=== PATIENT | female | born 1970 | race Caucasian/White ===

== ENCOUNTER 2023-09-07 16:18 | Emergency (ER) | payer OTHER, SELFPAY ==
[2023-09-07 16:29] VITALS: BP 152/98
[2023-09-07 16:46] LABS: % Basophils 1.2 % (0-2); % Eosinophils 1.3 % (0-6); % Immature Granulocytes 0.3 % (0-0.5); % Lymphocytes 23.3 % (20.5-51.1); % Monocytes 4.7 % (1.7-9.3); % Neutrophils 69.2 % (42.2-75.2); Absolute Basophils 0.1 10^3/uL (0-0.2); Absolute Eosinophils 0.1 10^3/uL (0-0.7); Absolute Lymphocytes 1.7 10^3/uL (1.2-3.4); Absolute Monocytes 0.4 10^3/uL (0.1-0.6); Absolute Neutrophils 5.2 10^3/uL (1.4-6.5); Hematocrit 41.5 % (37.0-47.0); Hemoglobin 14.5 g/dL (12.0-16.0); Mean Corp Hgb Conc. 34.9 g/dL (33.0-37.0); Mean Corpuscular Hgb 28.9 pg (27.0-31.0); Mean Corpuscular Volume 82.8 fL (81.0-99.0); Mean Platelet Volume 10.3 fL (7.4-10.4); Nucleated Red Blood Cells % 0 %; Platelet Count 306 10^3/uL (130-400); Red Blood Cell Count 5.01 10^6/uL (4.20-5.40); Red Cell Dist. Width 12.9 % (11.5-14.5); White Blood Cell Count 7.4 10^3/uL (4.8-10.8)
[2023-09-07 17:00] LABS: ALT (SGPT) 21 U/L (0-35); AST (SGOT) 30 U/L (14-36); Albumin 4.4 g/dl (3.5-5.0); Alkaline Phosphatase 99 U/L (38-126); Blood Urea Nitrogen 14 mg/dl (7-17); Calcium 9.9 mg/dl (8.4-10.2); Carbon Dioxide 28 mmol/L (22-30); Chloride 102 mmol/L (98-107); Glucose 106 mg/dl (70-99); Lipase 126 U/L (23-300); Potassium 4.1 mmol/L (3.5-5.1); Sodium 134 mmol/L (135-145); Total Bilirubin 0.5 mg/dl (0.2-1.3); Total Protein 7.3 g/dl (6.3-8.2); eGFR > 60.00
[2023-09-07 22:19] VITALS: BP 125/97; BMI 31.9
[2023-09-07] MEDS: OMNIPAQUE 50 ML PO (22:50)
[2023-09-07] MEDS: ZOFRAN 4 MG IV (22:50)
[2023-09-07 22:56] LABS: HCG, Serum Qualitative Screen Negative
[2023-09-07] MEDS: DILAUDID 0.5 MG IV (22:57)
[2023-09-07 22:58] LABS: Magnesium 1.9 mg/dl (1.6-2.3)
[2023-09-07] MEDS: NSS 1000 IV (22:58)
[2023-09-07 23:33] LABS: TSH Reflex To Free T4 2.77 uIU/ml (0.47-4.68)
[2023-09-08 00:37] VITALS: BP 119/89
--- NOTE | 2023-09-08 00:38 | EDRN ---
Finished oral contrast, ambulatory to the restroom, states is still slightly nauseated and with pain, will inform Dr. Howe
--- NOTE | 2023-09-08 00:58 | ED.GENMED ---
History of Present Illness
General
Chief Complaint: Abdominal Symptoms
Source: patient
Exam Limitations: none
Time Seen by Provider: 09/07/23 22:15
Nursing documentation reviewed up to this point in time: agreed with
Travel History
Have you had any contact with someone who has COVID-19?: No
Do you have any symptoms of coronavirus? Fever > 100 degrees, chills, cough, shortness of breath, sore throat, loss of taste or smell, muscle aches, or headache?: No
History of Present Illness
History of Present Illness:
Patient with history of Crohn's disease, presents to ED secondary to recurrent abdominal pain associated with nausea and decreased appetite over the past 4 days. In addition, patient states that tremor that she has been experiencing since last
January, has worsened. Patient was started on new antidepressant 1 month ago, which she is wondering may be contributing to her symptoms. Denies fever or chills. Patient reports diarrhea, with streaks of blood noted when she wipes.
Past History
Past History
ED Past Medical History: Asthma, Fibromyalgia, Hypothyroidism, Psychiatric (Panic disorder, Anxiety, Depression) and Other (Ulcerative colitis, Migraines, common variable immunodeficiency, PNA, Crohn's, IBS, endometriosis, Anemia, Lymphocytic
colitis); Negative HTN, Hypercholesterolemia or NIDDM
ED Past Surgical History: Cholecystectomy, Gynecological (Hysterectomy) and Other (cataracts)
Social History
Tobacco: Non-smoker
Alcohol: None
Personal:
Living: alone
Employment: Not employed
Family History
Family History: Other
Review of Systems
Review of Systems
Allergies reviewed?: Yes
All Other Systems: ROS reviewed and negative except as documented in HPI and ROS
Constitutional: Reports no symptoms
EENT: Reports no symptoms
Respiratory: Reports no symptoms
Cardiac: Reports no symptoms
ABD/GI: Reports abdominal pain, nausea and diarrhea
: Reports no symptoms
Musculoskeletal: Reports no symptoms
Skin: Reports no symptoms
Neurological: Reports no symptoms
Phy Exam
Physical Exam
Physical Exam:
Physical Exam
General: mild painful distress, not acutely ill. afebrile
Head: nc/at. eomi
Neck: supple. no meningeal signs.
Heart: s1/s2 regular rate and rhythm, no murmur. equal radial pulses.
Lungs: no acute respiratory distress. clear bilaterally
Abdomen: normal bowel sounds. diffuse abdominal tenderness.
Neuro: alert and oriented. no focal neurological deficits
Skin: no rash
Psychiatric: well kept. interactive and cooperative
Extremities: no edema. no calf tenderness.
Course
Orders/Labs/Results
Orders:
Orders
09/07/23 16:38
Complete Blood Count/With Diff Urgent
Comprehensive Metabolic Panel Urgent
HCG, Serum Qualitative Screen Urgent
Comment: ADD ON
Lipase Urgent
Magnesium Urgent
Comment: ADD ON
TSH Reflex To Free T4 Urgent
Comment: ADD ON
09/07/23 22:23
Add On- LAB Urgent
Tests Added?: serum B-hcg qualitative, magnesium, TSH to reflex free T4
HYDROmorphone [Dilaudid] 0.5 mg IV NOW STA
Iohexol [Omnipaque] See Protocol PO NOW STA
Ondansetron Injectable [Zofran] 4 mg IV NOW STA
09/07/23 22:24
0.9% Sodium Chloride 1000 ml [Nss] 1,000 ml IV BOLUS
09/08/23 00:50
CT Abd/pel W Iv And Oral Contr Urgent
Reason For Exam: abdominal pain
09/08/23 03:09
HYDROmorphone [Dilaudid] 0.5 mg IV NOW STA
Abnormal Lab Results
09/07/23
16:38
Sodium 134 L mmol/L
(135-145)
Glucose 106 H mg/dl
(70-99)
09/07/23 16:38
09/07/23 16:38
Vital Signs
Initial and Last Documented VS:
Initial Vital Signs
Temp Pulse Resp BP Pulse Ox
98.9 F 112 18 152/98 96
09/07/23 16:29 09/07/23 16:29 09/07/23 16:29 09/07/23 16:29 09/07/23 16:29
Last Documented Vital Signs
Temp Pulse Resp BP Pulse Ox
98.9 F 70 16 121/88 100
09/07/23 16:29 09/08/23 04:37 09/08/23 04:37 09/08/23 04:37 09/08/23 04:37
MDM/Problems Addressed
MDM/Problems Addressed:
Patient with an unremarkable workup including blood work and CT scan. Patient otherwise remains afebrile, hemodynamically stable, and nontoxic-appearing. Patient reports improvement in symptoms after treatment. Patient will be discharged home in
stable condition, with recommendation to follow-up with her GI physician for reevaluation. Patient will be provided with short course of pain medication until then. Discussed with patient also regarding her ongoing trauma, which has been deemed to
be possible essential tremor. Patient already has an appointment in December with neurologist, with whom she will follow-up. Until then, if symptoms worsen, advised to speak with her primary care physician for evaluation and treatment.
*Critical Care Note
Total Time (30-74mins, 75-104mins- exclusive of procedures): Not Applicable
ED Attending Note
-
Portions of this chart may have been created with voice recognition software.� Occasional wrong word or��sound alike� substitutions may have occurred due to the inherent limitations of voice recognition software.
Discharge Plan
Departure
Patient Disposition: Home (Routine Discharge)
Date of Disposition: 09/08/23
Time of Disposition: 03:10
Patient with high blood pressure during this ER visit?: Yes
Condition: Good
Discharge Problem:
Abdominal pain, Tremor
Instructions: Abdominal Pain
Prescriptions:
New
hydrocodone-acetaminophen 5-300 mg tablet
1 tab PO Q8H PRN (Reason: Pain) Qty: 14 0RF
No Action
dlqkbnezal-wxofdiyrcrjoz-dehu 1 TAB tablet
2 tab PO BIDPRN PRN (Reason: migraine)
fluticasone propion-salmeterol 1 DISK/ blister with device
1 inh IH R BIDPRN PRN (Reason: sob)
albuterol sulfate 1 PUFF HFA aerosol inhaler
1 puff inhalation R Q4HPRN PRN (Reason: sob)
clonazepam 1 MG tablet
1 mg PO TIDPRN PRN (Reason: anxiety)
Hizentra 1 GM/5 ML solution
11 gm SQ WEEKLY
Rx Instructions:
WEDNESDAYS
ondansetron 4 MG tablet,disintegrating
4 mg PO TIDPRN PRN (Reason: nausea) Qty: 30 0RF
diphenoxylate-atropine 1 TABLET tablet
1 tab PO QIDPRN PRN (Reason: diarrhea)
dicyclomine 10 MG capsule
10 mg PO QIDPRN PRN (Reason: stomach cramps)
escitalopram oxalate 20 MG tablet
20 mg PO DAILY
budesonide 3 mg Capsule,Delayed,Extend.Release
6 mg PO DAILY
Hold Instructions: discuss restarting with Dr. Julien at your appointment
Excedrin Extra Strength 250-250-65 mg Tablet
1 tab PO Q6HPRN PRN (Reason: migraines)
hydroxyzine pamoate 25 mg Capsule
25 mg PO BIDPRN PRN (Reason: anxiety)
Stelara 90 mg/mL Syringe
90 mg SC Q8W
pantoprazole 40 mg Tablet,Delayed Release (Dr/Ec)
40 mg PO BID Qty: 30 0RF
prednisone 10 mg tablet
10 mg PO DAILY Qty: 60 0RF
Rx Instructions:
take 40 mg 02/21 then decrease by 5 mg every 5 days until off
Referrals:
David Julien MD [Active] -
Kellie Nuñez CRNP [Family Provider] -
Activity Restrictions/Additional Instructions:
As discussed, please follow-up with your primary care physician and GI physician for continual evaluation and treatment. Your prescriptions been sent electronically to [facility] in [place].
Interventions
Interventions:
*Risk Screen - Suicide Last Done: 09/07/23 16:29
*General Assessment Last Done: 09/07/23 16:29
*Neglect/Abuse Screening Last Done: 09/07/23 16:29
ED- Fall Risk Assessment Last Done: 09/07/23 23:29
*ED COVID-19 Vaccine History Last Done: 09/07/23 16:29
*Nursing Disposition Last Done: 09/08/23 04:37
XI-Sblfkm-Pynvhzrpim Assessment Last Done: 09/07/23 23:29
Discharge Date and Time
Discharge Date/Time: 09/08/23 04:40
Print Language: GEORGIAN
[2023-09-08] MEDS: DILAUDID 0.5 MG IV (03:36)
[2023-09-08 04:35] VITALS: BP 121/88
[2023-09-08 04:37] VITALS: BP 121/88
== END 2023-09-08 04:40 | disposition home or self-care (01) ==
LOC: EMR 16:18
PROVIDERS: Emergency Medicine; EMERGENCY PHYSICIAN Emergency Medicine; FAMILY PHYSICIAN Nurse Practitioner Family
DX: R10.9 Unspecified abdominal pain (principal); R25.1 Tremor, unspecified; K50.90 Crohn's disease, unspecified, without complications; R03.0 Elevated blood-pressure reading, without diagnosis of hypertension
CPT/HCPCS: 99285; 96374; 96375; 96361 ×5; 96376; 74177; 80053; 83690; 83735; 84443; 84703; 85025; Q9967

== ENCOUNTER → 2023-11-12 13:00 | Outpatient (REF) | payer OTHER, SELFPAY | LOC: MRI 3T 13:00 | PROVIDERS: ATTENDING PHYSICIAN Specialist; FAMILY PHYSICIAN Nurse Practitioner Family | DX: K50.80 Crohn's disease of both small and large intestine without complications (principal) | CPT/HCPCS: 72197; 74183; A9575 ==

== ENCOUNTER → 2023-12-09 06:32 | Day surgery (SDC) | payer OTHER, SELFPAY | LOC: GI 06:32 | PROVIDERS: ATTENDING PHYSICIAN Specialist | DX: D12.5 Benign neoplasm of sigmoid colon (principal); K63.5 Polyp of colon; K50.011 Crohn's disease of small intestine with rectal bleeding; K57.30 Diverticulosis of large intestine without perforation or abscess without bleeding; K64.8 Other hemorrhoids; K64.4 Residual hemorrhoidal skin tags; R93.3 Abnormal findings on diagnostic imaging of other parts of digestive tract; K29.50 Unspecified chronic gastritis without bleeding; R10.84 Generalized abdominal pain; R12 Heartburn; K31.89 Other diseases of stomach and duodenum | CPT/HCPCS: 45380; 43239; 88305; 88342 ==

== ENCOUNTER → 2024-02-02 10:29 | Outpatient (REF) | payer OTHER, SELFPAY | LOC: RAD 10:29 | PROVIDERS: ATTENDING PHYSICIAN Specialist; FAMILY PHYSICIAN Nurse Practitioner Family | DX: K50.80 Crohn's disease of both small and large intestine without complications (principal) | CPT/HCPCS: 74250 ==

== ENCOUNTER → 2024-02-14 13:34 | Outpatient (REF) | payer OTHER, SELFPAY | LOC: MRI 3T 13:34 | PROVIDERS: ATTENDING PHYSICIAN Psychiatry & Neurology Neurology; FAMILY PHYSICIAN Nurse Practitioner Family | DX: R41.3 Other amnesia (principal) | CPT/HCPCS: 70551 ==

== ENCOUNTER → 2024-07-01 10:00 | Outpatient (REF) | payer OTHER, SELFPAY | LOC: RAD 10:00 | PROVIDERS: ATTENDING PHYSICIAN Specialist; FAMILY PHYSICIAN Nurse Practitioner Family | DX: K50.80 Crohn's disease of both small and large intestine without complications (principal) | CPT/HCPCS: 74246; 74248 ==

== ENCOUNTER 2024-08-31 11:32 | Emergency (ER) | payer OTHER, SELFPAY ==
[2024-08-31 11:36] VITALS: BP 120/88
--- NOTE | 2024-08-31 12:34 | ED.GENMED ---
History of Present Illness
<ARTIE Steven - Last Filed: 09/01/24 20:17>
General
Chief Complaint: Vaginal Bleeding
Source: patient
Exam Limitations: none
Time Seen by Provider: 08/31/24 12:25
Nursing documentation reviewed up to this point in time: agreed with
History of Present Illness
History of Present Illness:
53 yr old female w/ pmh of hysterectomy presents for dysuria. She reports she has had dysuria for the past several days and she is complaining of vaginal bleeding though she states she had a hysterectomy several years ago. When she wipes with
toilet paper she will see bleeding and has some dark blood in her underwear. She has not seen a [employer] in many yrs since her surgery in 2008.
She also thought she may have had a yeast infection use 1 time of Monistat. She denies any associated fever chills nausea vomiting. she does c/o of back pain. no prior history of stone.
Past History
<ARTIE Steven - Last Filed: 09/01/24 20:17>
Past History
ED Past Medical History: Asthma, Fibromyalgia, Hypothyroidism, Psychiatric (Panic disorder, Anxiety, Depression) and Other (Ulcerative colitis, Migraines, common variable immunodeficiency, PNA, Crohn's, IBS, endometriosis, Anemia, Lymphocytic
colitis); Negative HTN, Hypercholesterolemia or NIDDM
ED Past Surgical History: Cholecystectomy, Gynecological (Hysterectomy) and Other (cataracts)
Social History
Tobacco: Non-smoker
Alcohol: None
Personal:
Living: alone
Employment: Not employed
Family History
Family History: Other
Review of Systems
<ARTIE Steven - Last Filed: 09/01/24 20:17>
Review of Systems
Allergies reviewed?: Yes
All Other Systems: ROS reviewed and negative except as documented in HPI and ROS
Constitutional: Reports no symptoms; Denies fever, fatigue or chills
Respiratory: Reports no symptoms
Cardiac: Reports no symptoms
ABD/GI: Reports no symptoms; Denies abdominal pain, nausea or vomiting
: Reports dysuria and other (pt c/o of 'vaginal bleeding')
Musculoskeletal: Reports no symptoms
Skin: Reports no symptoms
Neurological: Reports no symptoms
Psychiatric: Reports no symptoms
Phy Exam
<ARTIE Steven - Last Filed: 09/01/24 20:17>
General Physical Exam
General Presentation: no apparent distress
General age: appears stated age
General Skin: warm and dry
General Habitus: normal
General Mental: alert
General Hydration: appears well hydrated
Gastrointestinal Exam
Gastrointestinal Exam: non tender and soft
Genitourinary Exam Female
Exam Female: other (no bleeding in vaginal vault + small clot of blood at site of urethra )
Vaginal Exam: normal
Vaginal Bleeding: none
Neurological Exam
Neurological Exam: alert and oriented x3
Musculoskeletal Exam
Musculoskeletal Exam: full ROM
Skin Exam
Skin Exam: normal color and warm/dry
Psychiatric Exam
Psychiatric Exam: normal mood/affect
Course
<ARTIE Steven - Last Filed: 09/01/24 20:17>
Orders/Labs/Results
Orders:
Orders
08/31/24 13:04
UA Reflex to Culture [Urinalysis Reflex To Culture] Urgent
Date Specimen was Collected: 08/31/24
Time Specimen was Collected: 13:03
Urine Microscopic Reflex Cult Urgent
Urine Culture Urgent
VIOLET Source: U
Specimen Description:
Date Specimen was Collected: 08/31/24
Time Specimen was Collected: 13:03
08/31/24 14:05
CT Abd/pel Without Iv Or Oral Urgent
Comment:
Reason For Exam: back pain, hematuria
08/31/24 14:06
Nitrofurantoin Monohydrate [Macrobid] 100 mg PO NOW STA
Phenazopyridine HCl [Pyridium] 200 mg PO NOW STA
08/31/24 15:11
Ondansetron Orally Disint [Zofran Odt (Orally Disintegrating)] 4 mg .ROUTE .STK-MED ONE
08/31/24 15:12
Ondansetron Orally Disint [Zofran Odt (Orally Disintegrating)] 4 mg PO NOW STA
Abnormal Lab Results
08/31/24
13:04
Ur Occult Blood Reflex 4+ A
(Negative)
Leukocyte Esterase Rfl 2+ A
(Negative)
Urine RBC 21-25 A /HPF
(0-2)
Urine Bacteria (Reflex) Few A
(Negative)
Urine Albumin (Reflex) 1+ A
(Neg - Trace)
Vital Signs
Initial and Last Documented VS:
Initial Vital Signs
Temp Pulse Resp BP Pulse Ox
98.1 F 86 16 120/88 98
08/31/24 11:36 08/31/24 11:36 08/31/24 11:36 08/31/24 11:36 08/31/24 11:36
Last Documented Vital Signs
Temp Pulse Resp BP Pulse Ox
98.1 F 86 16 120/88 98
08/31/24 11:36 08/31/24 11:36 08/31/24 11:36 08/31/24 11:36 08/31/24 11:36
Slot Attendant consulted with Physician
Slot Attendant consulted with physician?: Yes
Name of Physician Consulted: Carley
<Juan Howe MD - Last Filed: 08/31/24 16:39>
Orders/Labs/Results
Orders:
Orders
08/31/24 13:04
UA Reflex to Culture [Urinalysis Reflex To Culture] Urgent
Date Specimen was Collected: 08/31/24
Time Specimen was Collected: 13:03
Urine Microscopic Reflex Cult Urgent
Urine Culture Urgent
VIOLET Source: U
Specimen Description:
Date Specimen was Collected: 08/31/24
Time Specimen was Collected: 13:03
08/31/24 14:05
CT Abd/pel Without Iv Or Oral Urgent
Comment:
Reason For Exam: back pain, hematuria
08/31/24 14:06
Nitrofurantoin Monohydrate [Macrobid] 100 mg PO NOW STA
Phenazopyridine HCl [Pyridium] 200 mg PO NOW STA
08/31/24 15:11
Ondansetron Orally Disint [Zofran Odt (Orally Disintegrating)] 4 mg .ROUTE .STK-MED ONE
08/31/24 15:12
Ondansetron Orally Disint [Zofran Odt (Orally Disintegrating)] 4 mg PO NOW STA
Abnormal Lab Results
08/31/24
13:04
Ur Occult Blood Reflex 4+ A
(Negative)
Leukocyte Esterase Rfl 2+ A
(Negative)
Urine RBC 21-25 A /HPF
(0-2)
Urine Bacteria (Reflex) Few A
(Negative)
Urine Albumin (Reflex) 1+ A
(Neg - Trace)
Vital Signs
Initial and Last Documented VS:
Initial Vital Signs
Temp Pulse Resp BP Pulse Ox
98.1 F 86 16 120/88 98
08/31/24 11:36 08/31/24 11:36 08/31/24 11:36 08/31/24 11:36 08/31/24 11:36
Last Documented Vital Signs
Temp Pulse Resp BP Pulse Ox
98.1 F 86 16 120/88 98
08/31/24 11:36 08/31/24 11:36 08/31/24 11:36 08/31/24 11:36 08/31/24 11:36
<ARTIE Steven - Last Filed: 09/01/24 20:17>
MDM/Problems Addressed
MDM/Problems Addressed:
Patient is a 53-year-old female presenting for dysuria and she stated vaginal bleeding however she has a history of hysterectomy pelvic exam was performed there is no blood in the vaginal vault. Patient has an obvious clot to the urethra and
urinalysis does show 21-25 RBCs she does complain of dysuria however there is 3�5 white blood cells with +2 leukocytes and few bacteria. She does complain of mild back pain however is nontoxic abdomen soft nontender no reports of nausea vomiting
fever chills. Will check CAT scan to ensure no stone and plan to discharge home.
as discussed ED attending will hold off on labs as patient is nontoxic no systemic complaints.
Patient has multiple drug allergies and reports she is tolerated Macrobid in the past. With symptoms will treat with Macrobid and Pyridium as requested by patient for symptoms however .discussed close outpatient with urology
Chronic conditions affecting care:
Crohns , immune deficiency
<ARTIE Steven - Last Filed: 09/01/24 20:17>
*Critical Care Note
Total Time (30-74mins, 75-104mins- exclusive of procedures): Not Applicable
ED Attending Note
<ARTIE Steven - Last Filed: 09/01/24 20:17>
-
Portions of this chart may have been created with voice recognition software.� Occasional wrong word or��sound alike� substitutions may have occurred due to the inherent limitations of voice recognition software.
<Juan Howe MD - Last Filed: 08/31/24 16:39>
ED Attending Note
Patient seen and examined by attending physician: Yes
ED Attending Note:
Patient patient with history of Crohn's disease, currently receiving new biologic treatment, presents to ED secondary to 1 week history of dysuria, urinary frequency, and blood with urination. Denies fever or chills. Denies nausea, vomiting, or
diarrhea. Denies abdominal pain. Denies inability to urinate. Denies back pain. Denies trauma. Denies previous history of similar symptoms. Discussed surgical history is significant for hysterectomy.
Physical Exam
General: no apparent distress, not acutely ill. afebrile
Head: nc/at. eomi
Neck: supple. no meningeal signs.
Abdomen: normal bowel sounds. not tender.
Neuro: alert and oriented x 3. no focal neurological deficits
Skin: no rash
Psychiatric: well kept. interactive and cooperative
Extremities: no edema. no calf tenderness.
CT abdomen pelvis report reviewed and discussed with patient.
History and exam concerning for potential UTI versus interstitial cystitis versus medication side effect from recent biologic treatment. However, in light of patient's ongoing symptoms and discomfort, after discussion, decision made to start
patient on short course of Macrobid, as she has had similar symptoms in the past secondary to UTI. In addition, patient will be referred to urology for an outpatient follow-up. Patient otherwise is afebrile, hemodynamically stable, and
nontoxic-appearing, at time of discharge.
Discharge Plan
Departure
Patient Disposition: Home (Routine Discharge)
Date of Disposition: 08/31/24
Time of Disposition: 16:34
Patient with high blood pressure during this ER visit?: Yes
Covid-19: Not Applicable
Discharge Problem:
Hematuria
Instructions: Blood in the urine (hematuria) - ED discharge instructions
Prescriptions:
New
nitrofurantoin monohyd/m-cryst [Macrobid] 100 mg capsule
100 mg PO BID Qty: 14 0RF
phenazopyridine [Pyridium] 200 mg tablet
200 mg PO TID Qty: 6 0RF
No Action
hzwhngvhaj-qlizpkdtqmpvo-ckxi 1 TAB tablet
2 tab PO BIDPRN PRN (Reason: migraine)
fluticasone propion-salmeterol 1 DISK/ blister with device
1 inh IH R BIDPRN PRN (Reason: sob)
albuterol sulfate 1 PUFF HFA aerosol inhaler
1 puff inhalation R Q4HPRN PRN (Reason: sob)
clonazepam 1 MG tablet
1 mg PO TIDPRN PRN (Reason: anxiety)
Hizentra 1 GM/5 ML solution
11 gm SQ WEEKLY
Rx Instructions:
WEDNESDAYS
ondansetron 4 MG tablet,disintegrating
4 mg PO TIDPRN PRN (Reason: nausea) Qty: 30 0RF
diphenoxylate-atropine 1 TABLET tablet
1 tab PO QIDPRN PRN (Reason: diarrhea)
dicyclomine 10 MG capsule
10 mg PO QIDPRN PRN (Reason: stomach cramps)
escitalopram oxalate 20 MG tablet
20 mg PO DAILY
budesonide 3 mg Capsule,Delayed,Extend.Release
6 mg PO DAILY
Excedrin Extra Strength 250-250-65 mg Tablet
1 tab PO Q6HPRN PRN (Reason: migraines)
hydroxyzine pamoate 25 mg Capsule
25 mg PO BIDPRN PRN (Reason: anxiety)
Stelara 90 mg/mL Syringe
90 mg SC Q8W
pantoprazole 40 mg Tablet,Delayed Release (Dr/Ec)
40 mg PO BID Qty: 30 0RF
prednisone 10 mg tablet
10 mg PO DAILY Qty: 60 0RF
Rx Instructions:
take 40 mg 02/21 then decrease by 5 mg every 5 days until off
hydrocodone-acetaminophen 5-300 mg tablet
1 tab PO Q8H PRN (Reason: Pain) Qty: 14 0RF
Referrals:
Kellie Nuñez CRNP [Family Provider] -
Ludwin Núñez MD [Active] -
Activity Restrictions/Additional Instructions:
As discussed stable hydrated. A prescription for antibiotic was sent to pharmacy along with Pyridium for burning. Take as directed. Follow-up closely with your family doctor as well as urology. Your urinalysis will need to be checked in the next
week.
Return if any worsening of symptoms including fever chills nausea vomiting back pain.
Interventions
Interventions:
*Risk Screen - Suicide Last Done: 08/31/24 11:36
*General Assessment Last Done: 08/31/24 14:02
*Neglect/Abuse Screening Last Done: 08/31/24 11:36
*ED- Fall Risk Assessment Last Done: 08/31/24 14:02
*ED COVID-19 Vaccine History Last Done: 08/31/24 14:02
*Nursing Disposition Last Done: 08/31/24 17:12
ED-Female Genitourinary Assessment Last Done: 08/31/24 13:00
Discharge Date and Time
Discharge Date/Time: 08/31/24 17:12
Print Language: DJIBOUTIAN
[2024-08-31 13:17] LABS: Urine Albumin 1+ (Neg - Trace); Urine Bilirubin Negative (Negative); Urine Character Slightly Cloudy (Clear); Urine Color Yellow; Urine Glucose Negative (Negative); Urine Ketone Negative (Negative); Urine Leukocyte 2+ (Negative); Urine Nitrite Negative (Negative); Urine Occult Blood 4+ (Negative); Urine Specific Gravity 1.025 (<1.030); Urine Urobilinogen Negative (Neg - 1+)
[2024-08-31 13:54] LABS: Urine Bacteria Few (Negative); Urine Mucus Few; Urine Red Blood Cell 21-25 /HPF (0-2); Urine Squamous Cell 16-20 /LPF (Few)
[2024-08-31] MEDS: ZOFRAN ODT (ORALLY DISINTEGRATING) 4 MG PO (15:13)
== END 2024-08-31 17:12 | disposition home or self-care (01) ==
LOC: EMR 11:32
PROVIDERS: Nurse Practitioner; EMERGENCY PHYSICIAN Emergency Medicine; FAMILY PHYSICIAN Nurse Practitioner Family
DX: R31.9 Hematuria, unspecified (principal); K50.90 Crohn's disease, unspecified, without complications; J45.909 Unspecified asthma, uncomplicated; M79.7 Fibromyalgia; Z90.710 Acquired absence of both cervix and uterus
CPT/HCPCS: 99284; 74176; 81003; 81015; 87086

== ENCOUNTER → 2025-02-20 11:28 | Outpatient (REF) | payer OTHER, SELFPAY | LOC: MRI 3T 11:28 | PROVIDERS: ATTENDING PHYSICIAN Specialist; FAMILY PHYSICIAN Nurse Practitioner Family | DX: K50.80 Crohn's disease of both small and large intestine without complications (principal) | CPT/HCPCS: 72197; 74183; A9575 ==